=== PATIENT | female | born 1970 | race African-American/Black ===

== ENCOUNTER 2016-06-16 14:07 | Emergency (ER) ==
[2016-06-16 14:44] LABS: MANUAL DIFF NEEDED? NO
--- NOTE | 2016-06-16 14:49 | ED EKG INTERP ---
EKG Interpretation - EKG Time of EKG reading by physician:: 14:27 EKG Read and Signed by:: Markie Fam EKG Interpretation (*Must complete 3 of following elements*): Abnormal Rate: 83 (left ventricular hypertrophy with repolarization abnormality ) Rhythm: biatrial enlargement Attestation - Scribe Verification/Attestation Scribe:: Ashlyn Silva Acting as Scribe for:: Markie Fam Scribe documention review:: This chart was documented by a scribe and accurately reflects the service the provider performed and the decisions made by the provider.
[2016-06-16 14:50] LABS: BASO% 0.2 % (0.0-0.8); EOS# 0.09 X1000 (0.0-0.7); HEMATOCRIT 40.8 % (37.0-47.0); HEMOGLOBIN 14.6 g/dL (12.0-16.0); LYMPH# 2.28 X1000 (1.2-3.4); LYMPH% 24.8 % (20.5-51.1); MCH 31.7 PG (27-31); MCHC 35.8 g/dL (33-37); MCV 88.5 FL (81-99); MONO# 0.97 X1000 (0.11-0.59); MONO% 10.5 % (1.7-9.3); MPV 11.5 FL (7.4-10.4); NEUT% 63.5 % (42.2-75.2); PLT 246 X1000 (130-400); RBC 4.61 XMIL (4.2-5.4)
[2016-06-16 15:03] LABS: PTT 26.2 Seconds (22.0-36.0)
[2016-06-16 15:04] LABS: AGAP 12; ALBUMIN 4.3 g/dL (3.5-5.0); ALKALINE PHOSPHATASE 66 U/L (32-104); BUN 8 mg/dL (8-22); CHLORIDE 100 mmol/L (98-107); COSMO 281; GOT 21 U/L (10-30); GPT 22 U/L (10-36); INR 1.01; MAGNESIUM 2.1 mg/dL (1.5-2.7); POTASSIUM 3.4 mmol/L (3.5-5.1); PROTIME 10.3 Seconds (9.2-11.7); SODIUM 142 mmol/L (136-145); TCO2 30 mmol/L (25-35); TOTAL BILIRUBIN 0.24 mg/dL (0.20-1.00); TOTAL PROTEIN 7.2 g/dL (6.3-8.3)
[2016-06-16 15:09] LABS: CK PROFILE 177 U/L (24-173)
[2016-06-16 15:26] LABS: CK-MB 5.33 ng/mL (0.0-5.0)
--- NOTE | 2016-06-16 18:18 | Diag Imaging Result Document ---
PROCEDURE NAME: CHEST-2 VIEWS - 06/16/2016 FRONTAL AND LATERAL CHEST, 2 VIEWS: COMPARISON: Compared to 08/24/2015. The lungs are well expanded. The heart is not enlarged. The vessels are not distended. No pneumonia. No pleural effusions. No free air beneath the diaphragm. Mild scoliosis. IMPRESSION: No acute abnormality.
[2016-06-16] MEDS ORDERED: CATAPRES PO ONE (18:46)
--- NOTE | 2016-06-16 18:46 | PROVIDER DOCUMENTATION ---
HPI-Respiratory General - General Chief Complaint: Shortness of Breath Stated Complaint: SOB/CP Time Seen by Provider: 06/16/16 16:30 Source: patient Allergies/Adverse Reactions: Patient Allergies Allergy/AdvReac Type Severity Reaction Status Date / Time No Known Allergies Allergy Verified 06/16/16 17:27 Home Medications: Home Medication List Medication Instructions Recorded Confirmed Last Taken Type No Home Medications 06/16/16 06/16/16 Unknown History - History of Present Illness-Resp Nature of Presenting Problem: Pt is a 45 yof who presents to ER with CC of intermittent sob x"several months. " Pt also complains of stress-induced R lateral neck pain that radiates down her neck and R periscapula. Pt describes pain as tight/achy. On exam, pt denies any chest pain now, but does complain of R lateral neck pain. Pt also reports that several months ago, she started seeing a juice weigher (did not specify juice weigher's name) but reports that she stopped seeing him (reasons unspecified). Quality of Pain: reports: aching, tightness Severity in ED: reports: mild Onset/Duration: reports: unsure Timing: reports: still present, intermittent Episode Frequency: occasional episodes Associated Symptoms: reports: chest pain/soreness, cough, muscle/bodyaches, shortness of breath, short of breath. denies: dizziness, earache, fever/chills , heart racing, hurts to breathe, hyperventilating, lightheadedness, sinus pain , sore throat, sweaty, wheezing Review of Systems - Adult - REVIEW OF SYSTEMS - ADULT Constitutional: denies: chills, fever, fatique, night sweats, weight gain, weight loss Eyes: reports: no symptoms reported Ears, Nose, Mouth & Throat: reports: no symptoms reported Cardiovascular: reports: chest pain. denies: edema, heart murmur, irregular heart rate, orthopnea, palpitations, poor circulation, PND, syncope Respiratory: reports: cough, shortness of breath. denies: chronic cough, dyspnea on exertion, excessive sputum production, hemoptysis, pleurisy, wheezing Gastrointestinal: reports: no symptoms reported Genitourinary: reports: no symptoms reported Musculoskeletal: reports: back pain, muscle aches, neck pain. denies: bone pain , frequent leg cramps, joint pain, joint swelling, muscle weakness Integumentary: reports: no symptoms reported Neurological: reports: no symptoms reported Psychiatric: reports: no symptoms reported Endocrine: reports: no symptoms reported Hematologic/Lymphatic: reports: no symptoms reported Allergic/Immunologic: reports: no symptoms reported All Other Systems: Reviewed and Negative Past History - Adult - PAST MEDICAL HISTORY-ADULT Review of Records: reports: Nursing Assessment Review, Medications Reviewed - PRIOR SURGERIES/PROCEDURES Surgical/Procedure History: reports: - IMMUNIZATION STATUS Childhood Immunizations: See Nurse Assessment Flu Vaccine: See Nurse Assessment Physical Exam-General - PHYSICAL EXAM-ADULT Initial Vital Signs Reviewed: Yes - CONSTITUTIONAL General Appearance: appears well, alert, mild distress, anxious. negative: no apparent distress, moderate distress, severe distress, cachetic, obese, thin, lethargic, slow to respond, obtunded, combative - NECK Neck: full range of motion, supple, tender lateral (R). negative: non-tender, lymphadenopathy - RESPIRATORY Respiratory: chest non-tender, lungs clear, normal breath sounds, no pleuratic chest pain, no respiratory distress, no accessory muscle use. negative: respiratory distress, decreased breath sounds, accessory muscle use, wheezing - CARDIOVASCULAR Cardiovascular: normal peripheral pulses, regular rate, rhythm. negative: bradycardia, tachycardia, irregularly irregular - CHEST (BREASTS) Chest/Breast: no masses/lumps, no tenderness. negative: tenderness - GASTROINTESTINAL (ABDOMEN) Abdominal Exam: normal bowel sounds, non tender, soft. negative: abnormal bowel sounds, distended, tenderness, mass - MUSCULOSKELETAL Extremity: normal range of motion, non-tender, normal gait. negative: erythema , inflammation, swelling, tenderness - SKIN Integumentary: normal color, normal turgor, warm/dry. negative: abrasion(s), diaphoresis, ecchymosis, erythema, laceration(s), swelling, tenderness - NEUROLOGIC Neurologic: grossly normal, no motor/sensory deficits, negative romberg's sign. negative: facial droop, focal weakness, motor weakness, sensory deficit - PSYCHIATRIC Psych/Mental Status: normal thought content, normal thought process, oriented x 3, anxious. negative: normal mood/affect Progress - PLAN OF CARE/RESULTS Progress/Plan/Lab Results: Vital Signs - 24 hr 06/16/16 14:22 Temperature 97.6 F Pulse Rate 93 H Respiratory 20 Rate Blood Pressure 198/108 O2 Sat by Pulse 100 Oximetry Orders Category Date Time Status ED: Urine Bedside ORDERED Care 06/16/16 14:25 Active CHEST-2 VIEWS [RAD] Stat Exams 06/16/16 14:24 Draft CBC WITH ELECTRONIC DIFF [HEME] Stat Lab 06/16/16 14:34 Completed CK PROFILE [SP CHEM] Stat Lab 06/16/16 14:34 Completed CK PROFILE [SP CHEM] Stat Lab 06/16/16 17:21 Completed COMPREHENSIVE METABOLIC PANEL [CHEM] Stat Lab 06/16/16 14:34 Completed D-DIMER [CHEM] Stat Lab 06/16/16 14:34 Completed MAGNESIUM [CHEM] Stat Lab 06/16/16 14:34 Completed PRO B-NATRIURETIC PEPTIDE Stat Lab 06/16/16 14:34 Completed PROTIME WITH INR [COAG] Stat Lab 06/16/16 14:34 Completed PTT [COAG] Stat Lab 06/16/16 14:34 Completed TROPONIN T Stat Lab 06/16/16 14:34 Completed TROPONIN T Stat Lab 06/16/16 17:21 Completed Clonidine [Catapres] Med 06/16/16 18:46 Discontinued 0.1 mg PO NOW ONE LISINOpril [Prinivil] Med 06/17/16 09:00 Active 20 mg PO DAILY EKG [EKG] Stat Ther 06/16/16 14:24 Ordered EKG [EKG] Stat Ther 06/16/16 16:31 Ordered Laboratory Tests 06/16/16 06/16/16 06/16/16 14:34 14:34 14:34 WBC 9.21 RBC 4.61 Hgb 14.6 Hct 40.8 MCV 88.5 MCH 31.7 H MCHC 35.8 RDW Std Deviation 12.2 Plt Count 246 MPV 11.5 H Immature Gran % (Auto) 0.0 Neut % (Auto) 63.5 Lymph % (Auto) 24.8 Sunflower % (Auto) 10.5 H Eos % (Auto) 1.0 Baso % (Auto) 0.2 Immature Gran # (Auto) 0.00 Neut # (Auto) 5.85 Lymph # (Auto) 2.28 Sunflower # (Auto) 0.97 H Eos # (Auto) 0.09 Baso # (Auto) 0.02 PT INR PTT (Actin FS) D-Dimer 0.69 H Sodium 142 Potassium 3.4 L Chloride 100 Carbon Dioxide 30 Anion Gap 12 BUN 8 Creatinine 0.9 Estimated GFR/1.73 m2 > 60 BUN/Creatinine Ratio 9 Glucose 82 Calculated Osmolality 281 Calcium 10.0 Magnesium 2.1 Total Bilirubin 0.24 AST 21 ALT 22 Alkaline Phosphatase 66 Creatine Kinase 177 H Creatine Kinase Index 3.0 H CK-MB (CK-2) 5.33 H Troponin T [id number] Pept Total Protein 7.2 Albumin 4.3 Globulin 2.9 Albumin/Globulin Ratio 1.5 06/16/16 06/16/16 06/16/16 14:34 14:34 14:34 WBC RBC Hgb Hct MCV MCH MCHC RDW Std Deviation Plt Count MPV Immature Gran % (Auto) Neut % (Auto) Lymph % (Auto) Sunflower % (Auto) Eos % (Auto) Baso % (Auto) Immature Gran # (Auto) Neut # (Auto) Lymph # (Auto) Sunflower # (Auto) Eos # (Auto) Baso # (Auto) PT 10.3 INR 1.01 PTT (Actin FS) 26.2 D-Dimer Sodium Potassium Chloride Carbon Dioxide Anion Gap BUN Creatinine Estimated GFR/1.73 m2 BUN/Creatinine Ratio Glucose Calculated Osmolality Calcium Magnesium Total Bilirubin AST ALT Alkaline Phosphatase Creatine Kinase Creatine Kinase Index CK-MB (CK-2) Troponin T < 0.010 [id number] Pept 587 H Total Protein Albumin Globulin Albumin/Globulin Ratio 06/16/16 06/16/16 17:21 17:21 WBC RBC Hgb Hct MCV MCH MCHC RDW Std Deviation Plt Count MPV Immature Gran % (Auto) Neut % (Auto) Lymph % (Auto) Sunflower % (Auto) Eos % (Auto) Baso % (Auto) Immature Gran # (Auto) Neut # (Auto) Lymph # (Auto) Sunflower # (Auto) Eos # (Auto) Baso # (Auto) PT INR PTT (Actin FS) D-Dimer Sodium Potassium Chloride Carbon Dioxide Anion Gap BUN Creatinine Estimated GFR/1.73 m2 BUN/Creatinine Ratio Glucose Calculated Osmolality Calcium Magnesium Total Bilirubin AST ALT Alkaline Phosphatase Creatine Kinase 170 Creatine Kinase Index CK-MB (CK-2) Troponin T < 0.010 [id number] Pept Total Protein Albumin Globulin Albumin/Globulin Ratio Departure - Departure Time of Disposition Order: 18:45 DIAGNOSIS: Neck pain, Atypical chest pain, Poor compliance Hypertension Qualifiers: Hypertension type: unspecified secondary hypertension Qualified Code(s): I15.9 - Secondary hypertension, unspecified; I15 - Secondary hypertension Disposition: HOME 01 Certified Medical Emergency: Emergent Condition: Stable Additional Instructions: Follow up with Seating Upholsterer. ED Follow Up Instructions: You have been treated by a care provider in the Emergency Department. These instructions are being provided to you so you can have an understanding of how to care for yourself upon discharge. Upon discharge from the Emergency Department, you are responsible for making arrangements for follow-up care by a physician of your choice. Take all prescribed medications as directed. Return to the Emergency Department immediately for any new or worsening symptoms. You may call the Physician Referral phone number at [phone] to obtain a list of Physicians who are taking new patients. Referrals: None,PCP [Primary Care Provider] - Poli Jon MD [STAFF PHYSICIAN] - Attestation - Scribe Verification/Attestation Scribe:: Ziyad Farley Acting as Scribe for:: Lucas Oswald Scribe documention review:: This chart was documented by a scribe and accurately reflects the service the provider performed and the decisions made by the provider.
[2016-06-16] MEDS ORDERED: PRINIVIL ONE (19:13)
[2016-06-16] MEDS ORDERED: PERCOCET-10 PO ONE (20:11)
[2016-06-16] MEDS ORDERED: DILAUDID IM ONE (20:11)
[2016-06-16] MEDS ORDERED: ZOFRAN ODT PO ONE (20:15)
[2016-06-16] MEDS ORDERED: NORVASC ONE (20:23)
[2016-06-16 21:20] VITALS: BP 177/119
[2016-06-17] MEDS ORDERED: NORVASC PO SCH (09:00)
[2016-06-17] MEDS ORDERED: PRINIVIL PO SCH (09:00)
--- NOTE | 2016-06-18 09:59 | EKG Report ---
Test Performed on : 06/16/2016 5:16:24 PM Test Reason : sob Blood Pressure : / mmHG Vent. Rate : 072 BPM Atrial Rate : 072 BPM P-R Int : 124 ms QRS Dur : 066 ms QT Int : 378 ms P-R-T Axes : 047 028 255 degrees QTc Int : 413 ms Sinus rhythm. with occasional premature ventricular complexes. Possible Left atrial enlargement Septal infarct (cited on or before 16-JUN-2016) ST & T wave abnormality, consider inferolateral ischemia Abnormal ECG When compared with ECG of 16-JUN-2016 14:27, (Unconfirmed) premature ventricular complexes. are now present Unconfirmed Result
--- NOTE | 2016-06-18 09:59 | EKG Report ---
Test Performed on : 06/16/2016 2:27:09 PM Test Reason : Chest Pain Blood Pressure : / mmHG Vent. Rate : 083 BPM Atrial Rate : 083 BPM P-R Int : 118 ms QRS Dur : 066 ms QT Int : 350 ms P-R-T Axes : 062 030 247 degrees QTc Int : 411 ms Normal sinus rhythm. Biatrial enlargement Left ventricular hypertrophy with repolarization abnormality Cannot rule out Septal infarct , age undetermined Abnormal ECG When compared with ECG of 24-AUG-2015 15:31, T wave inversion now evident in Inferior leads QT has shortened Unconfirmed Result
== END 2016-06-16 21:19 | disposition home or self-care (01) ==
LOC: ED 14:07
DX: M54.2 Cervicalgia (principal); R07.89 Other chest pain; R94.31 Abnormal electrocardiogram [ECG] [EKG]; I10 Essential (primary) hypertension; R06.02 Shortness of breath; M25.511 Pain in right shoulder; R05 Cough; M79.1 Myalgia; M54.9 Dorsalgia, unspecified
CPT/HCPCS: 71020; 80053; 82550; 82553; 83735; 83880; 84484; 85025; 85379; 85610; 85730; 93005; J1170